=== PATIENT | female | born 1990 | race Caucasian/White ===

== ENCOUNTER 2022-01-25 10:16 | Emergency (ER) | payer OTHER, SELFPAY ==
[2022-01-25 10:36] VITALS: BP 158/95; PULSE 125; RESP 18; TEMP 37.5; O2SAT 97; BMI 20.9
[2022-01-25 10:48] LABS: UTC Influenza A Antigen Negative (Negative)
[2022-01-25 10:49] LABS: UTC Influenza B Antigen Negative (Negative)
[2022-01-25 10:51] LABS: Strep Scrn Group A (Rapid) Negative (Negative)
--- NOTE | 2022-01-25 10:56 | HMH.EDUTC ---
[facility] [place] Clinical Impression: Viral syndrome Pharyngitis Qualifiers: Pharyngitis/tonsillitis etiology: unspecified etiology Qualified Code(s): J02.9 - Acute pharyngitis, unspecified Disposition: Home, Self-Care Condition on Discharge: Good Instructions: DI for Viral Syndrome Additional Instructions: Drink plenty of fluids. Take tylenol or ibuprofen for pain or fever. Take the medications as directed. Follow up with your regular doctor. GO TO THE ER FOR ANY WORSENING SYMPTOMS Quarantine until you know the results of your covid-19 test. Notify your school or workplace of your results and follow their instructions regarding return to work/school. Prescriptions: Brompheniramine/Pseudoephed/Dm [Bromfed Dm Cough Syrup] 5 ml PO Q6HP PRN #240 ml PRN Reason: Cough Transmission Status: Pending to [facility] methylPREDNISolone [Medrol] 4 mg PO DIRECTED 6 Days #21 packet Transmission Status: Pending to [facility] Azithromycin [Z-Marlo 250mg Tab*] 250 mg PO UD DOSE PK #6 tab Transmission Status: Pending to [facility] Referrals: Georgie Marcus PA [Primary Care Provider] - Forms: Work/School Release Time of Disposition: 11:11 Medical Decision Making - Medical Records Medical records reviewed: No: I reviewed the patient's medical records. - [place] Inquiry Pt receiving controlled substance: No Vital Signs: 01/25/22 10:36 Temperature 99.5 F Temperature Source Oral Pulse Rate [Left] 125 H Respiratory Rate 18 Blood Pressure [Right Arm] 158/95 H Blood Pressure Mean [Right Arm] 116 02 Sat by Pulse Oximetry 97 - Lab Data Lab results reviewed: Yes: I reviewed the patient's lab results. Lab Results 01/25/22 10:32: Influenza Type A Ag Negative, Influenza Type B Ag Negative 01/25/22 10:33: Group A Strep Rapid Negative Orders (Tests/Meds): ORDERS Category Date Time Status Strep Screen Confirmation Stat Micro 01/25/22 10:33 Received [facility] HPI - General Stated complaint: sore throat, rt ear ache Time Seen by Provider: 01/25/22 10:56 Mode of Arrival: Ambulatory Source of Information: Patient Limitations: No Limitations Description of Symptoms (Recalled from Triage Doc. by RN): pt c/o sore throat, bilateral ear pain, right worse than the left. body aches and chills. symptoms began yesterday. HEENT Symptoms (Recalled from RN notes): Yes Resp Symptoms (Recalled from RN notes): Yes Skin Symptoms (Recalled from RN notes): No MS Symptoms (Recalled from RN notes): No Functional Status (Recalled from RN notes): wnl - History of Present Illness Provider Complaint: She c/o sore throat, body aches, and a malaise for the past 1 day. - Related Data Previous Rx's Medication Instructions Recorded Azithromycin [Z-Marlo 250mg Tab*] 250 mg PO UD DOSE PK #6 tab 01/25/22 Brompheniramine/Pseudoephed/Dm 5 ml PO Q6HP PRN #240 ml 01/25/22 [Bromfed Dm Cough Syrup] methylPREDNISolone [Medrol] 4 mg PO DIRECTED 6 Days #21 01/25/22 packet Allergies Allergy/AdvReac Type Severity Reaction Status Date / Time No Known Allergies Allergy Verified 01/25/22 10:39 - Worker's Comp Is this a Worker's Comp case?: No [facility] History - Hepatitis A Screen Attestation statement:: This patient has been screened for Hepatitis A risk factors. I have reviewed the patient's past medical history: Yes ROS Obtained: Yes All systems reviewed & no additional complaints - Constitutional Constitutional: Reports as per HPI - Eyes Eyes: Denies eye discharge - ENT Ears, Nose, Mouth, and Throat: Reports as per HPI - Cardiovascular Cardiovascular: Denies chest pain - Respiratory Respiratory: Denies chest congestion, Reports cough, Denies dyspnea, Denies stridor, Denies wheezing - Gastrointestinal Gastrointestingal: Reports: nausea. Denies: abdominal pain, diarrhea, vomiting - Musculoskeletal Musculoskeletal: Denies joint pain Physical Exam -
[2022-01-25 11:15] VITALS: BP 140/80; PULSE 100; RESP 18; TEMP 37.5
== END 2022-01-25 11:20 | disposition home or self-care (01) ==
PROVIDERS: Emergency Provider Nurse Practitioner Family; PCP Physician Assistant
DX: B34.9 Viral infection, unspecified (principal)
CPT/HCPCS: 87430; 87804; 99212; G0463

== ENCOUNTER 2024-01-27 06:11 | Emergency (ER) | payer BC, SELFPAY ==
[2024-01-27] VITALS (51 sets, daily range): BP systolic 98–141; BP diastolic 63–95; PULSE 88–111; RESP 11–22; TEMP 36.8; O2SAT 93–100; BMI 35.5
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
[2024-01-27 06:33] LABS: Anion Gap 16.9 mEq/L (5-15); Blood Urea Nitrogen 9 mg/dl (7-17); Calcium 9.1 mg/dl (8.4-10.2); Carbon Dioxide 20 mmol/L (22.0-30.0); Chloride 107 mmol/L (98-107); Estimated Glomerular Filt Rate 95 ml/min (>60); GFR (African American) 115 ML/MIN (>60); Glucose 130 mg/dl (74-100); Potassium 3.9 mmoL/L (3.5-5.1); Sodium 140 mmol/L (136-145)
[2024-01-27 06:34] LABS: Alanine Aminotransferase 31 U/L (12-78); Albumin Level 4.3 g/dl (3.5-5.0); Albumin/Globulin Ratio 1.5 (1.1-1.8); Alkaline Phosphatase 128 U/L (38-126); Aspartate Amino Transferase 26 U/L (14-36); Bilirubin,Total 0.5 mg/dl (0.2-1.3); Globulin 2.9 g/dL (1.3-3.2); Total Protein,Serum 7.2 g/dl (6.3-8.2)
[2024-01-27 06:36] LABS: Activated Partial Thrombo Time 26.9 seconds (22.8-30.6); INR 1.03 (0.9-1.1); Prothrombin Time 11.1 seconds (10.1-12.5)
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
[2024-01-27] MEDS: SODIUM CHLORIDE 0.9% 10ML FLUSH SYRINGE 10 ML IV (07:01)
[2024-01-27] MEDS: TET/DIPHTH/PERT-ADULT 0.5ML SYRINGE 0.5 ML IM (07:05)
[2024-01-27] MEDS: KETOROLAC 30MG/ML VIAL 30 MG IV (07:05)
[2024-01-27] MEDS: MORPHINE 4MG/ML SYRINGE 4 MG IV (07:05)
[2024-01-27] MEDS: ONDANSETRON 4MG/2ML VIAL 4 MG IV (07:08)
[2024-01-27] MEDS: EPINEPHrine 1 MG/ML AMPUL TP (07:14)
[2024-01-27] MEDS: LIDOCAINE 2% UROJET 10ML TP (07:14)
[2024-01-27] MEDS: COCAINE 4% TOPICAL SOLN 4ML BOTTLE 1 ML TP (07:14)
[2024-01-27] MEDS: 0.9 % SODIUM CHLORIDE 50 ML VIAL 100 ML IV (07:19)
[2024-01-27] MEDS: IOPAMIDOL-370 (76%);100ML BOTTLE 200 ML IV (07:20)
--- NOTE | 2024-01-27 07:20 | PC.NURSE ---
called rad to power share images
--- NOTE | 2024-01-27 07:23 | PC.NURSE ---
@ 0727 [facility] called, no one on the line. No call back from them. @ 3625 I called [facility] directly. able to s/w tech who wanted to verify that MD had seen the Head CT report. Dr. Guillaume has.
--- NOTE | 2024-01-27 07:36 | PC.NURSE ---
Dr. Guillaume asked staff to check status of CBC results. No order placed by previous provider. I placed CBC order per MD Guillaume and called lab, asked to run CBC STAT.
[2024-01-27 07:40] LABS: Basophils # 0.1 K/mm3 (0-0.2); Basophils % 0.9 % (0.1-2.0); Eosinophils # 0.1 K/mm3 (0.0-0.4); Eosinophils % 0.7 % (0.1-12.0); Hematocrit 45.7 % (37.0-47.0); Hemoglobin 14.6 g/dL (12.2-16.2); Lymphocytes # 1.8 K/mm3 (0.7-4.5); Lymphocytes % 15.8 % (10-50); Mean Corpuscular HGB Conc 31.9 g/dL (31.8-35.4); Mean Corpuscular Hemoglobin 30.6 pg (27.0-31.2); Monocytes # 0.8 K/mm3 (0.1-1.0); Monocytes % 6.9 % (1.7-9.3); Neutrophils # 8.5 K/mm3 (1.8-7.8); Neutrophils % 75.7 % (37.0-80.0); Platelet Count 332 K/mm3 (142-424); Red Blood Count 4.76 M/mm3 (4.20-5.40); Red Cell Distribution Width 13.7 % (11.5-17.5); White Blood Count 11.3 K/mm3 (4.8-10.8)
[2024-01-27] MEDS: LIDOCAINE 1% 10ML MDV 10 ML SQ (07:42)
--- NOTE | 2024-01-27 07:57 | PC.NURSE ---
Dr. Guillaume at bedside for lac repair
--- NOTE | 2024-01-27 08:31 | PC.NURSE ---
Called for Neuro Surgery consult on patient. Dr Guillaume talking to Dr Caro.
--- NOTE | 2024-01-27 08:32 | PC.NURSE ---
speaking with [facility]
[2024-01-27] MEDS: ACETAMINOPHEN 1,000MG/100ML VIAL 1000 MG IV (10:10)
--- NOTE | 2024-01-27 11:05 | PC.NURSE ---
Dr. Guillaume s/w [facility]
--- NOTE | 2024-01-27 11:13 | PC.NURSE ---
Transfer center was given pt's most updated address & phone #. Also gave emergency contact number for pt's sister. Transfer center states they will call her for a neuro follow up with Dr. Dennis.
== END 2024-01-27 11:59 | disposition home or self-care (01) ==
PROVIDERS: Emergency Medicine; Emergency Provider Emergency Medicine; PCP Family Medicine
DX: S06.0X0A Concussion without loss of consciousness, initial encounter (principal); S01.81XA Laceration without foreign body of other part of head, initial encounter; D32.9 Benign neoplasm of meninges, unspecified; V29.498A Other motorcycle driver injured in collision with other motor vehicles in traffic accident, initial encounter; Y92.410 Unspecified street and highway as the place of occurrence of the external cause; Z23 Encounter for immunization
CPT/HCPCS: 70450; 70486; 70496; 70498; 71045; 71275; 72125; 72128; 72131; 72170; 73130; 73560; 73610; 74174; 80053; 85025; 85610; 85730; 90471; 90715; 96374; 96375; 99291; J0131; J2405; Q9967